=== PATIENT | male | born 1980 | race Caucasian/White ===

== ENCOUNTER 2018-02-28 17:20 | Emergency (ER) | payer OTHER ==
[~2018-02-28] VITALS: Ht 180.3 cm; Wt 84.1 kg
[2018-02-28] MEDS ORDERED: FLUO10CA28 PO (18:07)
[2018-02-28 19:20] LABS: EOSINOPHILS # (AUTO) 0.1 X10'3 (0-0.9); MEAN CORPUSCULAR HGB CONC 33.5 % (33.0-36.5); MONOCYTES # (AUTO) 0.6 X10'3 (0-0.9)
[2018-02-28 19:22] LABS: BASOPHILS # (AUTO) 0.2 X10'3 (0-0.2); BASOPHILS % (AUTO) 1.3 % (0-1); EOSINOPHILS % (AUTO) 0.6 % (0-6); HEMATOCRIT 47.2 % (42.0-52.0); HEMOGLOBIN 15.8 g/dl (14.0-17.9); LYMPHOCYTES # (AUTO) 1.2 X10'3 (1.1-4.8); LYMPHOCYTES % (AUTO) 10.4 % (21-51); MEAN CORPUSCULAR HEMOGLOBIN 27.9 PG (27.0-31.0); MEAN CORPUSCULAR VOLUME 83.3 FL (78-98); MEAN PLATELET VOLUME 7.5 FL (7.4-10.4); MONOCYTES % (AUTO) 5.4 % (2-12); NEUTROPHILS # (AUTO) 9.8 X10'3 (1.8-7.7); NEUTROPHILS % (AUTO) 82.3 % (42-75); PLATELET COUNT 308 X10'3 (140-440); RED BLOOD COUNT 5.66 X10'6 (4.70-6.10); RED CELL DISTRIBUTION WIDTH 12.7 % (11.5-14.5); WHITE BLOOD COUNT 11.9 X10'3 (4.5-11.0)
[2018-02-28 19:24] LABS: URINE AMPHETAMINE SCREEN NEGATIVE (Neg); URINE BARBITUATE SCREEN NEGATIVE (Neg); URINE BENZODIAZEPINES SCREEN NEGATIVE (Neg); URINE CANNABINOID SCREEN NEGATIVE (Neg); URINE COCAINE SCREEN NEGATIVE (Neg); URINE METHADONE SCREEN NEGATIVE (Neg); URINE OPIATE SCREEN NEGATIVE (Neg); URINE PHENCYCLIDINE SCREEN NEGATIVE (Neg)
[2018-02-28] MEDS: LORazepam 1 MG tablet PO ONE ×2 (19:25→21:33)
[2018-02-28 19:29] LABS: ALANINE AMINOTRANSFERASE 29 U/L (12-78); ALBUMIN 4.2 G/DL (3.4-5.0); ALBUMIN/GLOBULIN RATIO 1.1 (1.1-1.5); ALKALINE PHOSPHATASE 76 IU/L (46-116); ANION GAP 13 (8-16); ASPARTATE AMINO TRANSFERASE 18 U/L (10-37); BILIRUBIN,TOTAL 0.6 MG/DL (0.1-1.0); BLOOD UREA NITROGEN 9 MG/DL (7-18); BUN/CREATININE RATIO 11.1 (5.4-32.0); CALCIUM 9.4 MG/DL (8.5-10.1); CHLORIDE 104 MMOL/L (99-107); CREATININE 0.81 MG/DL (0.60-1.10); ETHANOL < 0.010 GM/DL (0.0-0.010); GLUCOSE 116 MG/DL (70-104); POTASSIUM 3.7 MMOL/L (3.5-5.1); SODIUM 140 MMOL/L (135-145); TOTAL CARBON DIOXIDE 23.4 MMOL/L (24-32); TOTAL PROTEIN 7.9 G/DL (6.4-8.2); eGFR > 90 ML/MIN
[2018-02-28] MEDS ORDERED: LORazepam 1 MG tablet PO ONE (23:45)
[2018-02-28] MEDS ORDERED: diphenhydrAMINE 25mg capsule PO ONE (23:45)
[2018-03-01] MEDS: FLUoxetine 10mg capsule PO SCH ×2 (08:30→21:59)
[2018-03-01] MEDS ORDERED: LORazepam 1 MG tablet PO ONE (11:05)
[2018-03-01] MEDS: OLANZapine 5mg rapidly disint. tablet PO SCH ×2 (11:09→21:41)
[2018-03-01] MEDS ORDERED: FLUoxetine 10mg capsule PO SCH (22:10)
[2018-03-01] MEDS ORDERED: FLUoxetine 10mg capsule PO ONE (22:10)
[2018-03-02] MEDS ORDERED: LORazepam 1 MG tablet PO ONE (01:45)
[2018-03-02] MEDS ORDERED: diphenhydrAMINE 25mg capsule PO ONE ×2 (01:50→19:35)
[2018-03-02] MEDS: OLANZapine 5mg rapidly disint. tablet PO SCH ×5 (08:13→20:00)
[2018-03-02 17:28] LABS: CLARITY,URINE CLEAR (Clear); COLOR,URINE YELLOW (Yellow); GLUCOSE, URINE NEGATIVE (Neg); KETONES,URINE TRACE mg/dl (Neg); LEUKOCYTE ESTERASE ,URINE NEGATIVE (Neg); NITRITES, URINE NEGATIVE (Neg); OCCULT BLOOD,URINE NEGATIVE (Neg); PROTEIN,URINE NEGATIVE (Neg); UROBILINOGEN,URINE 0.2 E.U/dL (0.2-1.0)
[2018-03-02 17:29] LABS: UA COLLECTION TYPE VOIDED
[2018-03-02] MEDS: FLUoxetine 10mg capsule PO SCH ×4 (19:36→21:00)
[2018-03-02] MEDS ORDERED: OLANZapine **IM** 10 mg inj. IM ONE (19:45)
[2018-03-03] MEDS: OLANZapine 5mg rapidly disint. tablet PO SCH ×2 (08:00→20:00)
[2018-03-03] MEDS ORDERED: OLANZapine **IM** 10 mg inj. IM ONE (20:55)
[2018-03-03] MEDS: FLUoxetine 10mg capsule PO SCH (21:00)
[2018-03-04] MEDS: OLANZapine 5mg rapidly disint. tablet PO SCH (08:00)
[2018-03-04] MEDS ORDERED: OLANZapine 5mg rapidly disint. tablet PO SCH (13:50)
[2018-03-04] MEDS ORDERED: LORazepam 1 MG tablet PO PRN ×2 (14:55→15:00)
[2018-03-04] MEDS ORDERED: LORazepam 2 mg/ml vial IM PRN (15:00)
[2018-03-04 17:30] VITALS: BP 144/89
== END 2018-03-04 19:12 ==
LOC: EEVIPCON 17:21 → ER 17:21
DX: F29 Unspecified psychosis not due to a substance or known physiological condition (principal); F32.9 Major depressive disorder, single episode, unspecified; Z79.899 Other long term (current) drug therapy
CPT/HCPCS: 36415; 80053; 80305; 80320; 81003; 82948; 84443; 85025; 96372; 99285; J2060; Q0163

== ENCOUNTER 2018-03-05 17:15 | Emergency (ER) | payer OTHER ==
[~2018-03-05] VITALS: Ht 180.3 cm; Wt 84.0 kg
[~2018-03-05 17:15] MED LIST: FLUO10CA28 PO
[2018-03-05 18:49] LABS: ALANINE AMINOTRANSFERASE 27 U/L (12-78); ALBUMIN 4.1 G/DL (3.4-5.0); ALBUMIN/GLOBULIN RATIO 1.1 (1.1-1.5); ALKALINE PHOSPHATASE 73 IU/L (46-116); ANION GAP 10 (8-16); ASPARTATE AMINO TRANSFERASE 18 U/L (10-37); BILIRUBIN,TOTAL 1.1 MG/DL (0.1-1.0); BLOOD UREA NITROGEN 13 MG/DL (7-18); BUN/CREATININE RATIO 17.1 (5.4-32.0); CALCIUM 9.2 MG/DL (8.5-10.1); CHLORIDE 103 MMOL/L (99-107); CREATININE 0.76 MG/DL (0.60-1.10); GLUCOSE 102 MG/DL (70-104); POTASSIUM 3.7 MMOL/L (3.5-5.1); SODIUM 140 MMOL/L (135-145); TOTAL CARBON DIOXIDE 27.1 MMOL/L (24-32); TOTAL PROTEIN 7.8 G/DL (6.4-8.2); eGFR > 90 ML/MIN
[2018-03-05 19:25] LABS: BASOPHILS % (AUTO) 0.4 % (0-1); EOSINOPHILS % (AUTO) 2.4 % (0-6); HEMOGLOBIN 16.4 g/dl (14.0-17.9); LYMPHOCYTES # (AUTO) 1.9 X10'3 (1.1-4.8); LYMPHOCYTES % (AUTO) 21.6 % (21-51); MEAN CORPUSCULAR HEMOGLOBIN 28.8 PG (27.0-31.0); MEAN CORPUSCULAR HGB CONC 34.1 % (33.0-36.5); MEAN CORPUSCULAR VOLUME 84.5 FL (78-98); MEAN PLATELET VOLUME 7.9 FL (7.4-10.4); MONOCYTES % (AUTO) 5.6 % (2-12); NEUTROPHILS # (AUTO) 6.1 X10'3 (1.8-7.7); PLATELET COUNT 261 X10'3 (140-440); RED BLOOD COUNT 5.68 X10'6 (4.70-6.10); RED CELL DISTRIBUTION WIDTH 12.3 % (11.5-14.5); WHITE BLOOD COUNT 8.7 X10'3 (4.5-11.0)
[2018-03-05 19:26] LABS: EOSINOPHILS # (AUTO) 0.2 X10'3 (0-0.9); MONOCYTES # (AUTO) 0.5 X10'3 (0-0.9)
[2018-03-05] MEDS ORDERED: LORazepam 2 mg/ml vial IM ONE (21:00)
[2018-03-06 05:46] VITALS: BP 137/74
[2018-03-06] MEDS ORDERED: OLAN15TA5 PO (08:04)
[2018-03-06] MEDS ORDERED: LORA1TAB PO (08:05)
[2018-03-06] MEDS ORDERED: OLANZapine 5mg rapidly disint. tablet PO SCH (09:51)
[2018-03-06] MEDS ORDERED: FLUoxetine 20mg capsule PO SCH (09:52)
[2018-03-06] MEDS ORDERED: LORazepam 1 MG tablet PO SCH (09:52)
== END 2018-03-06 15:10 ==
LOC: EEVIPCON 17:15 → ER 17:15
DX: F29 Unspecified psychosis not due to a substance or known physiological condition (principal); F32.9 Major depressive disorder, single episode, unspecified; Z79.899 Other long term (current) drug therapy
CPT/HCPCS: 36415; 70450; 80053; 85025; 96372; 99285; J2060